=== PATIENT | male | born 1955 | race Caucasian/White ===

== ENCOUNTER 2021-08-15 00:46 | Day surgery (SDC) | payer MEDICARE, SELFPAY ==
[2021-07-26 13:35] VITALS: BMI 27.7
[2021-08-15 06:45] VITALS: BP 135/77; PULSE 73; RESP 18; TEMP 36.4; O2SAT 96; BMI 26.4
[2021-08-15] MEDS: LACTATED RINGERS 1,000 ML 150 ML IV CONT (07:03)
--- NOTE | 2021-08-15 07:08 | WPDGICN ---
Assessment and Plan Assessment and plan (1) Colon cancer screening: Code(s): Z12.11 - Encounter for screening for malignant neoplasm of colon Status: Acute Assessment and Plan: Colonoscopy with possible biopsy or polypectomy or cautery or injection of substances. GI Consult Note Consult date/time: 08/15/21 07:08 HPI: Cam Ennis is a 66 year old male For consideration for colon cancer screening. He had a colonoscopy about 10 to 15 years ago which he believes was unremarkable. He does not have any family history of colon cancer. He denies seeing blood in his stools. There has been no significant change in his bowel habits. Review of Systems Review of Systems: All systems reviewed & are unremarkable except as noted in HPI and below PMFSH Past Medical History Medical History Arthritis DJD of shoulder Environmental allergies CHE (obstructive sleep apnea) Rotator cuff tendinitis Scalp lesion Wears glasses Surgical History Surgical History H/O arthroscopy of right knee (~2011) History of appendectomy (~1961) Family History Family History Mother Family history of genetic disorder Father Family history of malignant neoplasm of kidney Other Arthritis Asthma Social History Social History Second hand tobacco smoke exposure: No Alcohol intake: current Drinks per week: 1 Alcohol use details: 4-5 per month Substance use: never Substance use type: does not use Living arrangements: with family Gender identity (if verbalized by the patient): Male Spiritual care concerns: No Meds Home Medications and Allergies Home Medications Medication Instructions Recorded Confirmed Type cetirizine 10 mg capsule 10 mg PO DAILY PRN 07/17/20 08/15/21 History multivitamin 1 tablet PO DAILY 07/17/20 08/15/21 History naproxen sodium 220 mg capsule 220 mg PO BID PRN 07/17/20 08/15/21 History Allergies Allergy/AdvReac Type Severity Reaction Status Date / Time No Known Allergies Allergy Verified 08/15/21 06:53 Vital Signs Vital Signs - 24 hr 08/15/21 06:45 Temperature 36.4 C Pulse Rate 73 Respiratory Rate 18 Blood Pressure 135/77 Pulse Oximetry 96
--- NOTE | 2021-08-15 07:33 | WPDANESEPPF ---
Anes - Initial Pre Proc Eval Procedure: Operation Date: 08/15/21 08:00 Proposed Procedures p Screening Colonoscopy - Jean Marie Zimmerman MD Date/Time: 08/15/21 07:33 Surgeon: Jean Marie Zimmerman MD Pre Op Diagnosis: neoplasm screening Patient Data Age: 66 Gender: M Height: 1.88 m Weight: 93.3 kg Last Vital Signs Temp 97.6 F 08/15/21 06:45 Pulse 73 08/15/21 06:45 Resp 18 08/15/21 06:45 BP 135/77 08/15/21 06:45 Pulse Ox 96 08/15/21 06:45 Allergies Allergy/AdvReac Type Severity Reaction Status Date / Time No Known Allergies Allergy Verified 08/15/21 06:53 Home Medications Medication Instructions Recorded Confirmed Type cetirizine 10 mg capsule 10 mg PO DAILY PRN 07/17/20 08/15/21 History multivitamin 1 tablet PO DAILY 07/17/20 08/15/21 History naproxen sodium 220 mg capsule 220 mg PO BID PRN 07/17/20 08/15/21 History Patient hx anesthesia problems: none Family hx anesthesia problems: none Results Review: All pre-operative results and documents have been reviewed as part of the pre-operative evaluation. [facility] Past Medical History Medical History Arthritis DJD of shoulder Environmental allergies CHE (obstructive sleep apnea) Rotator cuff tendinitis Scalp lesion Wears glasses Surgical History Surgical History H/O arthroscopy of right knee (~2011) History of appendectomy (~1961) Family History Family History Mother Family history of genetic disorder Father Family history of malignant neoplasm of kidney Other Arthritis Asthma Social History Social History Second hand tobacco smoke exposure: No Alcohol intake: current Drinks per week: 1 Alcohol use details: 4-5 per month Substance use: never Substance use type: does not use Living arrangements: with family Gender identity (if verbalized by the patient): Male Spiritual care concerns: No Anes - Eval Final PreProcedure Day of Procedure 08/15/21 07:33 Patient weight: overweight Heart: regular rate and rhythm Lungs: clear to auscultation Airway: Mallampati scale class II Neurological: alert and oriented Last oral intake: >/= 8 hours ASA classification: II Emergent: no Anesthetic plan: proceed Anesthesia type and monitoring: general GIVS and standard monitoring Results Review: All pre-operative results and documents have been reviewed as part of the pre-operative evaluation. Informed Consent: The patient's anesthetic plan and its attendant risks and benefits were discussed with the patient/family/POA. Questions were solicited and answers provided to the satisfaction of the patient/family/POA.
[2021-08-15 08:19] VITALS: BP 116/73; PULSE 62; RESP 15; O2SAT 96
[2021-08-15 08:29] VITALS: BP 117/72; PULSE 60; RESP 20; O2SAT 98
[2021-08-15 08:39] VITALS: BP 132/83; PULSE 60; RESP 14; O2SAT 97
== END 2021-08-15 08:49 | disposition home or self-care (01) ==
PROVIDERS: PCP Family Medicine; Visit Provider Internal Medicine Gastroenterology
PROC: 0DJD8ZZ Inspection of Lower Intestinal Tract, Via Natural or Artificial Opening Endoscopic (ICD-10-PCS; CPT 45378; principal; 2021-08-15 08:00)
DX: Z12.11 Encounter for screening for malignant neoplasm of colon (principal); G47.33 Obstructive sleep apnea (adult) (pediatric)
CPT/HCPCS: G0121; J2704; J7120

== ENCOUNTER 2023-07-16 09:07 | Outpatient (CLI) | payer MEDICARE, SELFPAY ==
--- NOTE | ~2023-07-16 | XR_ITS ---
Right Knee Technique: AP, lateral, and sunrise views were obtained. Clinical History: Pain Findings: No fracture or dislocation is seen. Osseous alignment is anatomic. There is mild spurring a t the medial joint line, intercondylar notch, and patella. Soft tissues are unremarkable. No joint ef fusion is seen. Impression: Mild degenerative spurring, as above. There is medial compartment narrowing on weightbearing. Reviewed, dictated and finalized at location M. Impression: Mild degenerative spurring, as above. There is medial compartment narrowing on weightbearing.
== END 2023-07-16 09:08 ==
PROVIDERS: PCP Family Medicine; Visit Provider Family Medicine
DX: M25.561 Pain in right knee (principal)
CPT/HCPCS: 73564

== ENCOUNTER 2024-12-27 08:36 | Outpatient (CLI) | payer MEDICARE, SELFPAY ==
--- NOTE | 2024-12-27 08:51 | ECG_ITS ---
Test Date: 2024-12-27 09:02:08 Measurements Intervals Molt Rate: 65 P: 54 FL: 198 QRS: -47 QRSD: 110 T: 58 QT: 385 QTc: 402 Interpretive Statements SINUS RHYTHM LEFT AXIS DEVIATION [QRS AXIS < -30] VOLTAGE CRITERIA FOR LVH [MEETS CRITERIA IN ONE OF: R(aVL), S(V1), R(V5), R(V5/V6)+S(V1)] No previous ECG available for comparison Electronically Signed On 12-27-2024 14:32:39 CDT by Tristin Savage M.D.
--- OUTSIDE RECORDS SUMMARY | 2024-12-27 09:13 | XMS_ITS | Clinical Summary ---
Author Organization [facility] Address [address], [facility] [address] [place] [address] Phone Care Team Providers Care Power Press Operator Name Role Phone Adeel Foss MD Primary Care Provider Allergies No known active allergies Medications Multiple Vitamin (MULTI-VITAMIN PO) Take 1 Tab by mouth daily. 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 on file Not on file Not on file Last Filed Vital Signs Vital Sign Reading Time Taken Comments Blood Pressure 133/82 06/24/2018 10:53 AM CDT Pulse 56 06/24/2018 10:53 AM CDT Temperature 36 C (96.8 F) 06/24/2018 10:53 AM CDT Respiratory Rate 12 06/24/2018 10:53 AM CDT Oxygen Saturation 99% 06/24/2018 10:53 AM CDT Inhaled Oxygen Concentration - - Weight 95.3 kg (210 lb) 06/24/2018 9:12 AM CDT Height 185.4 cm (6' 1) 06/24/2018 9:12 AM CDT Body Mass Index 27.71 06/24/2018 9:12 AM CDT Plan of Treatment Health Maintenance Due Date Last Done Comments Hepatitis C Virus (HCV) Screening 1955 TdaP Immunization 1955 Cologuard 1998 Immunochemical Fecal Occult Blood 1998 Pneumococcal Immunization (5 0+ years) (1 of 1 - PCV) 2003 Zoster Immunization (1 of 2) 2003 SARS-COV-2 Immunization (1 - 2023- season) 2023 Influenza Immunization (#1) 2024 Respiratory Syncytial Virus (RSV) Immunization (Adult) (1 - 1-dose 75+ series) 02/19/2028 Colonoscopy 06/24/2028 06/24/2018 Colorectal Cancer Screening 06/24/2028 Hepatitis B Immunization Aged Out No longer eligible based on patient's age to complete this topic Human Papillomavirus (HPV) Immunization Aged Out No longer eligible b ased on patient's age to complete this topic Meningococcal Immunization (ACWY) Aged Out No longer eligible based on patient's age to complete this topic Rotavirus Immunization Aged Out No lo nger eligible based on patient's age to complete this topic Insurance MEDICARE [facility] ADDRESS Care Teams Power Press Operator Relationship Specialty Start Date End Date Adeel Foss MD PCP - General Family Medicine 06/04/18
[2024-12-27 09:56] LABS: Add Urine Microscopic? YES; Appearance Urine Clear (Clear); Glucose Urine UA Negative (Negative); Leukocyte Esterase Ur Trace LEU/UL (Negative); Nitrate Urine Negative (Negative); Non Pathogenic Casts 0-2; Specific Grav Ur 1.022 (1.001-1.035)
== END 2024-12-27 08:37 | disposition home or self-care (01) ==
PROVIDERS: PCP Family Medicine; Visit Provider Orthopaedic Surgery
DX: R94.31 Abnormal electrocardiogram [ECG] [EKG] (principal); I10 Essential (primary) hypertension; R53.83 Other fatigue
CPT/HCPCS: 81001; 93005

== ENCOUNTER 2025-03-15 09:49 | Outpatient (CLI) | payer MEDICARE, SELFPAY ==
[2025-03-15 11:20] LABS: Hematocrit 44.4 % (42.0-52.0); Hemoglobin 14.5 g/dL (14.0-18.0); Immature Granulocyte Percent A 0.2 % (0-0.5); Lymphocytes Absolute Auto 1.15 K/mm3 (0.9-3.2); Mean Corpuscular HGB Conc 32.7 g/dl (32-36); Mean Corpuscular Hemoglobin 29.7 pg (26-34); Mean Corpuscular Volume 91.0 fl (80-100); Nucleated Red Blood Cells Absolute Auto 0.000 K/mm3 (0.0-0.012); Nucleated Red Blood Cells Perc 0.0 % (0.0-0.2); Platelet Count Result 237 k/mm3 (150-375); Red Blood Count 4.88 M/mm3 (4.6-6.20); White Blood Count 5.6 K/mm3 (4.5-10.0)
[2025-03-15 11:27] LABS: Add Urine Microscopic? YES; Appearance Urine Clear (Clear); Glucose Urine UA Negative (Negative); Leukocyte Esterase Ur 1+ LEU/UL (Negative); Need Manual Microscopic Reviewed; Nitrate Urine Negative (Negative); Non Pathogenic Casts 0-2; Specific Grav Ur 1.021 (1.001-1.035)
[2025-03-15 11:32] LABS: Albumin Level 4.3 g/dL (3.5-5.1); Anion Gap 2 mmol/L (4-12); Blood Urea Nitrogen 18 mg/dL (9-20); Calcium 9.2 mg/dL (8.4-10.2); Carbon Dioxide 27 mmol/L (22-30); Chloride 106 mmol/L (98-107); Estimated Glomerular Filt Rate > 60; Glucose 98 mg/dL (65-110); Potassium 4.3 mmol/L (3.4-5.0); Sodium 135 mmol/L (137-145)
[2025-03-15 11:33] LABS: INR 0.9; Partial Thromboplastin Time 27.2 Seconds (22.3-36.8); Prothrombin Time 12.4 Seconds (11.1-14.7)
[2025-03-15 12:26] LABS: Hemoglobin A1C 5.9 % (<5.7)
[2025-03-15 13:14] LABS: MRSA (PCR) NOT DETECTED (NOT DETECTE)
== END 2025-03-15 09:50 | disposition home or self-care (01) ==
LOC: ANHSURGERY 09:52
PROVIDERS: PCP Family Medicine; Visit Provider Orthopaedic Surgery
DX: Z01.812 Encounter for preprocedural laboratory examination (principal); M17.11 Unilateral primary osteoarthritis, right knee
CPT/HCPCS: 80048; 80307; 81001; 82040; 83036; 85025; 85610; 85730; 87086; 87641